=== PATIENT | male | born 1990 | race Caucasian/White ===

== ENCOUNTER 2021-11-16 23:16 | Outpatient (CLI) | payer MEDICAID | END 2021-11-16 23:17 | disposition critical access hospital (66) | LOC: EMS 23:16 | DX: R55 Syncope and collapse (principal); R42 Dizziness and giddiness; R03.1 Nonspecific low blood-pressure reading | CPT/HCPCS: A0425; A0427; A0999 ==

== ENCOUNTER 2021-11-16 23:36 | Emergency (ER) | payer MEDICAID ==
--- NOTE | 2021-11-16 23:52 | ED Physician Documentation ---
PD HPI SYNCOPE - Stated complaint Stated Complaint: - Chief complaint Chief Complaint: Cardiac - History obtained from History obtained from: Friend (girlfriend (she asks to answer for patient, she states patient has memory issues due to lyme disease)) - History of Present Illness Witnessed: Witnessed Timing - onset: Yesterday Preceding symptoms: Light headed, Generalized weakness Associated symptoms: None Contributing factors: Just stood up Injury occurred: None Similar symptoms before: Diagnosis (orthostatic hypotension) - Additional information Additional information: KHOA. girlfriend says patient had syncopal episodes last night and twice tonight. She says he has had similar episodes on chronic basis and has been medically evaluated multiple times with working diagnosis of orthostatic/positional hypotension and high tone pelvic floor dysfunction. The reason for ED visit is patient had two episodes tonight which patient and girlfriend say has not happened before. She says last night and tonight, he went to stand from sitting position (tonight), and kneeling position (last night) and became lightheaded and had generalized weakness and had to lie down due to these symptoms. She says he did not lose consciousness last night but tonight had several seconds of unresponsiveness. She says he recovered from this and tried to stand up again but again had to lie down due to feeling lightheaded, weakness, and as though he might pass out again Review of Systems Eyes: reports: Reviewed and negative Cardiac: reports: Reviewed and negative Respiratory: reports: Reviewed and negative GI: reports: Reviewed and negative Neurologic: reports: Generalized weakness, Near syncope, Syncope, LOC. denies: Focal weakness, Numbness, Seizure, Headache, Head injury PD PAST MEDICAL HISTORY - Past Medical History Past Medical History: Yes Other Past Medical History: orthostatic/positional hypotension, lyme disease - Allergies Allergies/Adverse Reactions: Allergies Allergy/AdvReac Type Severity Reaction Status Date / Time Sulfa (Sulfonamide Allergy Unknown Verified 11/16/21 23:52 Antibiotics) acetaminophen [From Tylenol] AdvReac Unknown Verified 11/16/21 23:52 NSAIDS (Non-Steroidal AdvReac Unknown Verified 11/16/21 23:52 Anti-Inflamma PD ED PE NORMAL - Vitals Vital signs reviewed: Yes - General General: Alert and oriented X 3, No acute distress, Well developed/nourished - HEENT HEENT: Moist mucous membranes - Neck Neck: Supple, no meningeal sign - Cardiac Cardiac: RRR, No murmur - Respiratory Respiratory: No respiratory distress, Clear bilaterally - Abdomen Abdomen: Soft, Non tender - Derm Derm: Normal color, Warm and dry - Neuro Neuro: Alert and oriented X 3, developer prover upholstering 2-12 intact, No motor deficit, No sensory deficit, Normal speech Eye Opening: Spontaneous Motor: Obeys Commands Verbal: Oriented GCS Score: 15 Results - Vitals Vitals: Oxygen O2 Source Room air - EKG (time done) No standard instances Rate: Rate (enter#) (50) Rhythm: Sinus bradycardia [place]: Normal Intervals: Normal ID QRS: Normal Ischemia: Normal ST segments - Labs Labs: Laboratory Tests 11/17/21 11/17/21 11/17/21 00:37 00:37 00:37 WBC 3.8 L RBC 3.95 L Hgb 12.4 L Hct 35.6 L MCV 90.1 MCH 31.4 H MCHC 34.8 RDW 12.4 Plt Count 151 MPV 10.3 Neut # (Auto) 2.0 Lymph # (Auto) 1.5 [place] # (Auto) 0.3 Eos # (Auto) 0.0 Baso # (Auto) 0.0 Absolute Nucleated RBC 0.00 Nucleated RBC % 0.0 Sodium 136 Potassium 3.4 L Chloride 99 L Carbon Dioxide 27 Anion Gap 10.0 BUN 13 Creatinine 0.9 Estimated GFR (MDRD) 99 Glucose 83 Calcium 8.8 Total Bilirubin 0.6 AST 20 ALT 17 Alkaline Phosphatase 68 Total Protein 6.6 L Albumin 4.1 Globulin 2.5 Albumin/Globulin Ratio 1.6 Lipase 160 H TSH 2.23 PD MEDICAL DECISION MAKING - ED course Complexity details: reviewed results, re-evaluated patient, considered differential, d/w patient ED course: presents via EMS due to syncopal episode. patient and girlfriend indicate that he has had such episodes on chronic basis and has been evaluated for this although unclear to me if there has been definitive diagnosis (vs provisional). He is given IV fluids in ED and no concerning findings on lab tests tonight. Subsequent to 1 liter NS IV, he is able to stand and ambulate to bathroom without help nor symptoms. Results d/w patient. He says he feels well enough to go home. Return precautions discussed. He has borderline blood pressures at times during ED stay as well as b orderline/low pulse rates (although his lower pulse rates did not correlate with his low blood pressure readings). Patient and girlfriend indicate his pulse and blood pressures are typically low/normal; he thus probably does not have much reserve before his bradycardia leads to hypotension, although the cause of this is again unclear at this time. I advised him to follow up with his primary care provider, further testing might be necessary to eliminate cardiac and neurological causes if not already performed (such as tilt table test, cardiac echo). His rhythm is NSR and sinus bradycardia during ED stay (on monitor and sinus bradycardia on EKG) Departure - Departure Disposition: Home, Self Care Clinical Impression: Syncope Qualifiers: Syncope type: unspecified Qualified Code(s): R55 - Syncope and collapse Condition: Good Instructions: ED Fainting Unkn Cause Comments: The results of tonight's tests do not have any concerning nor diagnostic findings. Your white blood cell count and red blood cell counts were both slightly lower than the normal range, but neither of these results are nearly low enough to cause symptoms. Similarly, your potassium level was just below the normal range, which also would not account for any symptoms. Your lipase (a pancreatic enzyme) was mildly elevated; this would only be a relevant/concerning finding if you had upper abdominal pain. Follow up with your primary care provider for reevaluation, next available appointment Discharge Date/Time: 11/17/21 03:54
[2021-11-17] MEDS ORDERED: SODIUM CHLORIDE 0.9% 1,000 ML IV STA (00:25)
[2021-11-17 00:46] LABS: BASOPHILS % (AUTO) 0.8 %; EOSINOPHILS % (AUTO) 0.5 %; HCT - HEMATOCRIT 35.6 % (42.0-52.0); HGB - HEMOGLOBIN 12.4 g/dL (14.0-18.0); LYMPHOCYTES # (AUTO) 1.5 10^3/uL (1.5-3.5); LYMPHOCYTES % (AUTO) 39.1 %; MEAN CORPUSCULAR HEMOGLOBIN 31.4 pg (27.0-31.0); MEAN CORPUSCULAR HGB CONC 34.8 g/dL (32.0-36.0); MEAN CORPUSCULAR VOLUME 90.1 fL (80.0-94.0); MEAN PLATELET VOLUME 10.3 fL (7.4-11.4); MONOCYTES # (AUTO) 0.3 10^3/uL (0.0-1.0); MONOCYTES % (AUTO) 8.6 %; NEUTROPHILS % (AUTO) 50.7 %; PLT - PLATELET COUNT 151 10^3/uL (130-450); RED BLOOD COUNT 3.95 10^6/uL (4.70-6.10); RED CELL DISTRIBUTION WIDTH 12.4 % (12.0-15.0); WHITE BLOOD COUNT 3.8 x10^3/uL (4.8-10.8)
[2021-11-17 01:07] LABS: ALBUMIN 4.1 g/dL (3.2-5.5); ALBUMIN/GLOBULIN RATIO 1.6 (1.0-2.2); BILIRUBIN,TOTAL 0.6 mg/dL (0.2-1.0); CALCIUM 8.8 mg/dL (8.5-10.3); CREATININE 0.9 mg/dL (0.6-1.2); POTASSIUM 3.4 mmol/L (3.5-5.0); TOTAL PROTEIN 6.6 g/dL (6.7-8.2)
[2021-11-17 03:01] VITALS: BP 88/42
== END 2021-11-17 03:54 | disposition home or self-care (01) ==
LOC: EDUNIT# → ED 23:36
DX: R55 Syncope and collapse (principal); R00.1 Bradycardia, unspecified
CPT/HCPCS: 36415; 80053; 83690; 84443; 85025; 93005; 99282; 99283